=== PATIENT | male | born 1960 | race Caucasian/White ===

== ENCOUNTER 2017-04-15 09:36 | Emergency (ER) | payer OTHER ==
[~2017-04-15] VITALS: Ht 162.6 cm; Wt 77.5 kg
[2017-04-15 09:41] VITALS: Ht 162.6 cm; Wt 77.5 kg
[2017-04-15] MEDS ORDERED: KETOROLAC 30 MG INJ IM STA (10:32)
[2017-04-15] MEDS ORDERED: INDO25CA25 PO (10:56)
[2017-04-15] MEDS ORDERED: COLC0.6T6 PO (10:59)
[2017-04-15] MEDS ORDERED: DEXAMETHASONE 10 MG/ML 1 ML INJ IM ONE (11:00)
[2017-04-15] MEDS ORDERED: HYDROCODONE/APAP (5/325) TAB PO ONE (11:00)
--- NOTE | 2017-04-15 11:29 | ERD ---
ER Documentation Chief Complaint Date/Time DATE: 04/15/17 TIME: 11:20 Chief Complaint LEFT NECK, LEG, AND KNEE PAIN HPI Patient is a 56-year-old male with a past medical history of gout who presents to the ED with left knee and left foot pain 1 week. As listed in the chief complaint, patient does not have neck pain. Patient states that the pain has been going on for the last week and states that it is tender to touch. He is able to walk however in the last day he has had increase in pain. 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 He states that he has used I report Radha gel which has helped with his symptoms. However he states that today is gotten worse. Denies calf pain or calf swelling. Denies chest pain or cough or shortness of breath. Denies headache or dizziness. No other complaints. ROS All systems reviewed and are negative except as per history of present illness. Medications Home Meds Active Scripts Colchicine* (Colcrys*) 0.6 Mg Tablet, 0.6 MG PO ONCE Y for PAIN for 1 Day, #3 TAB Take 1.2 mg PO now and 1 tab of 0.6mg PO one hour later. Prov:EDUARDO LIM PA-C 04/15/17 Indomethacin* (Indocin*) 25 Mg Capsule, 25 MG PO Q8 for 10 Days, CAP Prov:EDUARDO LIM PA-C 04/15/17 PMhx/Soc Medical and Surgical Hx: pt denies Medical Hx, pt denies Surgical Hx History of Surgery: No Anesthesia Reaction: No Hx Neurological Disorder: No Hx Respiratory Disorders: No Hx Cardiac Disorders: No Hx Psychiatric Problems: No Hx Miscellaneous Medical Probl: Yes Hx Alcohol Use: No Hx Substance Use: No Hx Tobacco Use: No Smoking Status: Never smoker FmHx Family History: No coronary disease, No diabetes, No other Physical Exam Vitals Vital Signs Date Time Temp Pulse Resp B/P Pulse Ox O2 Delivery O2 Flow Rate FiO2 04/15/17 09:41 98.1 76 18 143/88 99 Physical Exam GENERAL: Well-developed, well-nourished male. Appears in no acute distress. In a wheelchair HEAD: Normocephalic, atraumatic. EYES: Pupils are equally reactive bilaterally. EOMs grossly intact. No conjunctival erythema. ENT: Moist mucous membranes. No uvula deviation. No kissing tonsils. No exudates. NECK: Supple. No lymphadenopathy or thyromegaly. No meningismus. negative kernig. negative brudinski. LUNG: Clear to auscultation bilaterally. No rhonchi, wheezing, rales or coarse breath sounds. HEART: Regular rate and rhythm. No murmurs, rubs or gallops. Extremities: Equal pulses bilaterally. No peripheral clubbing, cyanosis or edema. No unilateral leg swelling. Tenderness to the dorsum of the left foot with no erythema. Tenderness to the left anterior knee with no erythema. Flexion and extension intact. No signs of infection. NEUROLOGIC: Alert and oriented. Moving all four extremities. 5/5 strength in all extremities. Normal speech. unSteady gait. SKIN: Normal color. Warm and dry. No rashes or lesions. Capillary refill < 2 seconds Results 24 hrs Current Medications Medications (Trade) Dose Ordered Sig/Susan Route PRN Reason Start Time Stop Time Status Last Admin Dose Admin Dexamethasone (Decadron) 10 mg ONCE ONCE IM 04/15/17 11:00 04/15/17 11:01 DC Acetaminophen/ Hydrocodone Bitart ([place] (5/325)) 1 tab ONCE ONCE PO 04/15/17 11:00 04/15/17 11:01 DC Ketorolac Tromethamine (Toradol) 30 mg ONCE STAT IM 04/15/17 10:32 04/15/17 10:34 DC Procedures/MDM ER COURSE: I kept the patient and/or family informed of laboratory and diagnostic imaging results throughout the emergency room course. MEDICAL DECISION MAKING: This is a 56-year-old male who presents with left knee and left foot pain 1 week. Vital signs were reviewed. Patient is afebrile. Patient is not hypoxic. Patient is not toxic or ill-appearing. Patient's symptoms are likely associated to gout. I consulted with my supervising physician Dr. Lai who came to examine patient at bedside and agrees with my medical decision making and discharge plans. Patient was given Decadron, Toradol and [place] here in the ED. Tolerated well with improvement in symptoms. Patient had a ride after today's ER visit. Patient will be given colchicine and Indocin for home. Low suspicion for dislocation, fracture, septic joint, compartment syndrome, osteomyelitis, cellulitis, avascular necrosis, neurological injury, vascular injury, tendon laceration. At this time I have low suspicion for fracture dislocation and no further imaging studies were done necessary at this time. Low suspicion for cellulitis as there is no erythema or swelling. Patient is afebrile. Low suspicion for septic joint as patient is afebrile and is able to move the joints. DISCHARGE: At this time, patient is stable for discharge and outpatient management with no new complaints during the ER course. Patient was sent home with colchicine and indomethacin. Patient will be discharged home with instructions to recheck for new or worsening symptoms such as fever, nausea, weakness, LOC and to follow up with primary care in the next 1-2 days. Patient was advised to return to the ER for any new or worsening symptoms. Plan was discussed and patient and/or family understands and agrees. Home instructions were given. Departure Diagnosis: Primary Impression: Gout Gout site: foot Gout etiology: unspecified cause Laterality: left Chronicity: unspecified Qualified Code: M10.9 - Gout of left foot, unspecified cause, unspecified chronicity Condition: Stable Patient Instructions: What Is Gout?, Eating to Prevent Gout, Gout Diet Referrals: [facility] Usted se manrique hecho un examen mdico de control que le indica que no est en michelle condicin que requiera tratamiento urgente en el Departamento de Emergencia. Un estudio ms profundo y el tratamiento de colvin condicin pueden esperar sin ningn riesgo hasta que usted sea atendida/o en el consultorio de colvin mdico o michelle cl jamel. Es responsabilidad suya arreglar michelle darcie para el seguimiento del geronimo. MANEJO DE CONDICIONES NO URGENTES EN EL FUTURO 1) Si usted tiene un mdico de atencin primaria: Usted debera llamar a colvin mdico de atencin primaria antes de venir al departamento de emergencia. Despus de las horas de consultorio, colvin doctor o colvin asociado/a est disponible por telfono. El mdico o enfermero de woody en el servicio telefnico puede asesorarle por lexi medio para atender el problema, o geronimo contrario se puede programar michelle darcie. 2) Si usted no tiene un mdico de atencin primaria: Llame al mdico o clnica de referencia que aparece abajo kalyani las horas de consultorio para hacer michelle darcie para que le vean. CLINICAS: [facility] [phone] [facility] [phone] [facility] [phone] [place] [id number] [phone] [place] [phone] [facility]. [phone] [address] Additional Instructions: Llame al doctor MAANA y kimberly michelle DARCIE PARA DENTRO DE 1-2 GIRALDO.Dgale a la secretaria que nosotros le instruimos hacer esta darcie.Avise o llame si colvin condicin se empeora antes de la darcie. Regresa aqui si peor o no mejor. EDUARDO LIM PA-C Apr 15, 2017 11:29
== END 2017-04-15 11:59 | disposition home or self-care (01) ==
LOC: FTE 09:36
DX: M10.9 Gout, unspecified (principal)
CPT/HCPCS: J1100; J1885; 96372